=== PATIENT | male | born 1985 | race Caucasian/White ===

== ENCOUNTER → 2018-12-30 | Outpatient (CLI) | payer OTHER ==
[~2018-12-30] MED LIST: BACLOFEN 10MG T10 MG PO; OMEPRAZOLE 20 M20 M1 PO; PROTONIX40 M2 PO; VICODIN 5-3001 EACH PO; XANAX1 MG PO
== END ==
LOC: M.PC 12-23 15:10
DX: M50.122 Cervical disc disorder at C5-C6 level with radiculopathy (principal); M47.22 Other spondylosis with radiculopathy, cervical region